=== PATIENT | male | born 1975 | race African-American/Black ===

== ENCOUNTER 2017-04-26 12:38 | Emergency (ER) | payer SELFPAY ==
[2017-04-26 14:46] LABS: HEMOGLOBIN 18.8 gm/dl (14.0-17.5); RED BLOOD COUNT 6.08 M/UL (4.20-5.50); WHITE BLOOD COUNT 4.6 K/UL (4.5-11.0)
[2017-04-26 15:02] LABS: BUN/CREATININE RATIO 7 (0-10)
== END 2017-04-26 17:20 | disposition home or self-care (01) ==
LOC: ER1 12:38
PROVIDERS: Emergency Medicine
DX: E86.0 Dehydration (principal); R10.9 Unspecified abdominal pain; I16.0 Hypertensive urgency
CPT/HCPCS: 36415; 80053; 81001; 83605; 83690; 85025; 96361; 96374; 96375; 99284; J2405; J7030; Q9962